=== PATIENT | female | born 1980 | race African-American/Black ===

== ENCOUNTER 2022-01-09 12:01 | Emergency (ER) | payer OTHER, SELFPAY ==
[2022-01-09] VITALS (10 sets, daily range): BP systolic 148–178; BP diastolic 70–99; PULSE 58–117; RESP 14–22; TEMP 36.8; O2SAT 98–100
--- NOTE | ~2022-01-09 | XR_ITS ---
EXAMINATION: XR chest 2V 01/09/2022 12:48 INDICATION: Left-sided chest pain PROCEDURE: 2 view chest COMPARISON: No prior studies for comparison. FINDINGS: The lungs are clear. The cardiomediastinal silhouette is within normal limits. There are no pleural effusions. There is no pneumothorax suspected. IMPRESSION: 1: NO ACUTE CARDIOPULMONARY DISEASE. Reviewed, dictated and finalized at location B.
--- NOTE | 2022-01-09 12:01 | ECG_ITS ---
Measurements Intervals [place] Rate: 75 P: 53 [place]: 153 QRS: 4 QRSD: 110 T: 26 QT: 353 QTc: 395 Interpretive Statements SINUS RHYTHM WITH SINUS ARRHYTHMIA MINIMAL Q WAVES- HIGH LATERAL LEADS BASELINE ARTIFACT- I, II, III, AVR, AVL, AVF BORDERLINE ECG Electronically Signed On 01-09-2022 12:34:49 CDT by Artem Gama D.O.
[2022-01-09 12:23] LABS: Basophils Percent Auto 0.4 % (0.2-1.2); Eosinophils Absolute Auto 0.2 K/mm3 (0-0.3); Eosinophils Percent Auto 3.1 % (0-4.4); Hemoglobin 11.8 g/dL (12.0-15.0); Immature Granulocyte Absolute 0.02 K/mm3 (0.00-0.031); Immature Granulocyte Percent A 0.4 % (0-0.5); Lymphocytes Absolute Auto 1.96 K/mm3 (0.9-3.2); Lymphocytes Percent Auto 37.8 % (18.3-44.2); Mean Corpuscular HGB Conc 31.1 g/dl (32-36); Mean Corpuscular Hemoglobin 29.3 pg (26-34); Mean Corpuscular Volume 94.3 fl (80-100); Mean Platelet Volume 8.9 fl (7.4-10.4); Monocytes Absolute Auto 0.4 K/mm3 (0.1-0.6); Monocytes Percent Auto 6.7 % (2.6-8.5); Neutrophils Absolute Auto 2.7 K/mm3 (1.3-6.7); Neutrophils Percent Auto 51.6 % (45.5-73.1); Platelet Count Result 299 k/mm3 (150-375); Red Blood Count 4.03 M/mm3 (4.2-5.4); Red Cell Distribution Width 14.7 % (11.5-14.5); White Blood Count 5.2 K/mm3 (4.5-10.0)
[2022-01-09 12:39] LABS: Alanine Aminotransferase 14 U/L (6-35); Albumin Level 4.2 g/dL (3.5-5.1); Alkaline Phosphatase 70 U/L (38-126); Anion Gap 7 mmol/L (8-16); Aspartate Amino Transferase 25 U/L (14-36); Bilirubin,Total 0.2 mg/dL (0.2-1.3); Blood Urea Nitrogen 10 mg/dL (7-17); Calcium 9.2 mg/dL (8.4-10.2); Carbon Dioxide 28 mmol/L (22-30); Chloride 103 mmol/L (98-107); Estimated CRCL calculation 99 ml/min; Estimated Glomerular Filt Rate > 60; Glucose 136 mg/dL (65-110); INR 1.2; Lipase 114 U/L (23-300); Partial Thromboplastin Time 24.8 SECONDS (22.3-36.8); Potassium 3.9 mmol/L (3.4-5.0); Prothrombin Time 14.9 Seconds (11.1-14.7); Sodium 138 mmol/L (137-145)
[2022-01-09] MEDS: ASPIRIN 81 MG CHEWABLE TABLET 324 MG PO (12:43)
--- NOTE | 2022-01-09 12:44 | PC.NURSE ---
Pt to radiology
[2022-01-09 12:50] LABS: Troponin I < 0.012 ng/mL (0.000-0.034)
[2022-01-09 15:43] LABS: Troponin I < 0.012 ng/mL (0.000-0.034)
--- NOTE | 2022-01-09 15:48 | ED.CHESTPAIN ---
HPI - Chest Pain General Chief Complaint: Chest Pain Stated Complaint: CHEST PAIN Time Seen by Provider: 01/09/22 14:17 Source: patient Mode of arrival: ambulatory Limitations: no limitations History of Present Illness HPI narrative: Patient is 41 years old -Citizen Of [place] female who presents to the ED complaining of intermittent sharp stabbing pain left upper chest last for less than 1 second, at rest while sitting messing with her phone. She denies any aggravating or relieving factors, she denies any fever, nausea, vomiting, diarrhea, constipation, shortness of breath or back pain. Related Data Home Medications Medication Instructions Recorded Confirmed amlodipine 01/09/22 Allergies Allergy/AdvReac Type Severity Reaction Status Date / Time lisinopril Allergy Swelling Verified 01/09/22 12:39 of Lip/Tongue/Throat Review of Systems Review of Systems: All systems reviewed & are unremarkable except as noted in HPI and below Exam Narrative: General appearance: Well-developed, well-nourished Skin: Normal color Head: Normocephalic, nontraumatic Eyes: Clear conjunctiva ENT: Oropharynx normal, ears normal, nose normal Neck: Supple, nontender Chest and respiratory: Airway patent, no respiratory distress, no accessory muscle use Heart: Regular rate/rhythm Abdomen: Soft, nontender, no organomegaly, quiet bowel sounds Vascular: Normal peripheral pulses, normal capillary refill. 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 Work-up did not show any significant findings to explain patient condition. Musculoskeletal versus pleurisy is my concern.. Cardiac score is 2. Vital Signs Vital signs: Vital Signs Temperature 36.8 C 01/09/22 12:02 Pulse Rate 117 H 01/09/22 12:02 Respiratory Rate 18 01/09/22 12:02 Blood Pressure 178/99 H 01/09/22 12:02 Pulse Oximetry 100 01/09/22 12:02 Temperature 36.8 C 01/09/22 12:02 Pulse Rate 58 L 01/09/22 13:46 Respiratory Rate 19 01/09/22 13:46 Blood Pressure 148/70 H 01/09/22 13:46 Pulse Oximetry 100 01/09/22 13:46 MDM - Chest Pain Lab Data Result diagrams: 01/09/22 12:16 01/09/22 12:16 Labs: Lab Results 01/09/22 01/09/22 01/09/22 Range/Units 12:16 12:16 12:16 WBC 5.2 (4.5-10.0) K/mm3 RBC 4.03 L (4.2-5.4) M/mm3 Hgb 11.8 L (12.0-15.0) g/dL Hct 38.0 (37.0-47.0) % MCV 94.3 (80-100) fl MCH 29.3 (26-34) pg MCHC 31.1 L (32-36) g/dl RDW 14.7 H (11.5-14.5) % Plt Count 299 (150-375) k/mm3 MPV 8.9 (7.4-10.4) fl Immature Gran % (Auto) 0.4 (0-0.5) % Neut % (Auto) 51.6 (45.5-73.1) % Lymph % (Auto) 37.8 (18.3-44.2) % [place] % (Auto) 6.7 (2.6-8.5) % Eos % (Auto) 3.1 (0-4.4) % Baso % (Auto) 0.4 (0.2-1.2) % Lymph # (Auto) 1.96 (0.9-3.2) K/mm3 [place] # (Auto) 0.4 (0.1-0.6) K/mm3 Eos # (Auto) 0.2 (0-0.3) K/mm3 Baso # (Auto) 0.0 (0.0-0.1) K/mm3 Abs Immat Gran (auto) 0.02 (0.00-0.031) K/mm3 Absolute Neuts (auto) 2.7 (1.3-6.7) K/mm3 Absolute Nucleated RBC 0.0 (0.0-0.012) K/mm3 Nucleated RBC % 0.0 (0.0-0.2) % PT 14.9 H (11.1-14.7) Seconds INR 1.2 APTT 24.8 (22.3-36.8) SECONDS Sodium 138 (137-145) mmol/L Potassium 3.9 (3.4-5.0) mmol/L Chloride 103 (98-107) mmol/L Carbon Dioxide 28 (22-30) mmol/L Anion Gap 7 L (8-16) mmol/L BUN 10 (7-17) mg/dL Creatinine 0.80 (0.7-1.0) mg/dL Estim Creat Clear Calc 99 ml/mi
[2022-01-09] MEDS: ACETAMINOPHEN 325 MG TABLET 650 MG PO (16:01)
== END 2022-01-09 16:03 | disposition home or self-care (01) ==
PROVIDERS: Emergency Provider Emergency Medicine
DX: R07.89 Other chest pain (principal)
CPT/HCPCS: 36415; 71046; 80053; 81025; 83690; 84484; 85025; 85610; 85730; 93005; 99284; A9270

== ENCOUNTER 2022-10-12 09:09 | Emergency (ER) | payer OTHER, SELFPAY ==
--- NOTE | ~2022-10-12 | XR_ITS ---
XR foot RT min 3V 10/12/2022 09:43 Indication: Right foot pain Procedure: 4 views right foot Comparison: No prior studies for comparison. Findings: No fracture, subluxation or dislocation. Lisfranc joint is intact. No soft tissue abnormali ty. No foreign bodies. Impression: 1: No acute fracture. Reviewed, dictated and finalized at location A. IC PUMP TRUCK DRIVER Impression: 1: No acute fracture.
[2022-10-12 09:23] VITALS: BP 171/96; PULSE 87; RESP 15; TEMP 36.6; O2SAT 100
[2022-10-12 10:35] VITALS: BP 177/81; PULSE 71; RESP 18; TEMP 36.8; O2SAT 100
--- NOTE | 2022-10-12 10:36 | ED.LOWEXIN ---
HPI - Extremity Injury (Lower) General Chief Complaint: Extremity Injury, Lower Stated Complaint: right leg pain Time Seen by Provider: 10/12/22 10:03 History of Present Illness HPI Narrative: Patient is a 42-year-old female who presents ER with right foot pain. Ongoing over the last week. Began in her right fifth metatarsal near the MTP. It then went to her heel. And now its over her MCPs 3 informed. No redness or swelling. No trauma. Hurts with walking. Better with rest. Related Data Home Medications Medication Instructions Recorded Confirmed amlodipine 5 mg tablet 01/09/22 Allergies Allergy/AdvReac Type Severity Reaction Status Date / Time lisinopril Allergy Swelling Verified 01/09/22 12:39 of Lip/Tongue/Throat Review of Systems Constitutional: Constitutional: Denies chills and Denies fever(s) Musculoskeletal: Musculoskeletal: Reports arthralgias and Denies joint swelling Neurologic: Denies focal weakness and Denies numbness PMFSH Past Medical History Medical History (Updated 10/12/22 @ 10:42 by Clay Godfrey MD) GERD (gastroesophageal reflux disease) Hyperlipidemia Hypertension Surgical History Surgical History (Updated 10/12/22 @ 10:38 by Clay Godfrey MD) No pertinent past surgical history Exam Narrative: GENERAL: Well-appearing, well-nourished, and in no acute distress. HEAD: Normocephalic, atraumatic. EXTREMITIES: Mild tenderness over the ball of the left foot at the third MTP without swelling. Flexion extension of the toes intact. No tenderness of the plantar fascia on the right side or over the calcaneus. No redness or swelling to the joints or foot. SKIN: Warm, dry, no rash. NEURO: Alert and oriented x3. PSYCH: Normal mood and affect. Course Course Emergency Course: No fracture. Withams here for pain. Postop shoe for home. Anti-inflammatories for home. Patient aware of diagnosis and treatment plan and verbalized understanding. Vital Signs Vital signs: Vital Signs Temperature 97.9 F 10/12/22 09:23 Pulse Rate 87 10/12/22 09:23 Respiratory Rate 15 10/12/22 09:23 Blood Pressure 171/96 H 10/12/22 09:23 Pulse Oximetry 100 10/12/22 09:23 Oxygen Delivery Room Air 10/12/22 09:23 Temperature 97.9 F 10/12/22 09:23 Pulse Rate 87 10/12/22 09:23 Respiratory Rate 15 10/12/22 09:23 Blood Pressure 171/96 H 10/12/22 09:23 Pulse Oximetry 100 10/12/22 09:23 Oxygen Delivery Room Air 10/12/22 09:23 MDM - Extremity Injury (Lower) Imaging Data Radiologist's impression: ITS Impressions Foot X-Ray 10/12/22 09:48 Impression: 1: No acute fracture. Discharge Plan Discharge Clinical Impression: Muscle strain of foot Patient Disposition: Home, Self-Care Condition: Stable Instructions: Muscle Strain (ED) Additional Instructions: Wear the hard soled shoe for 1 week while your pain resolves. Take naproxen twice a day over the same period of time. Return the ER if your foot is red and hot, you have fever over 100.4 ?F, you have additional concerns. Prescriptions: No Action amlodipine 5 mg tablet naproxen [Naprosyn] 500 mg tablet 500 mg PO BID PRN (Reason: pain) Qty: 14 0RF Follow-up/Referrals: PHYSICIAN,CRUSHING MILL OPERATOR [Primary Care Provider] - Manas Nice MD [Physician] - 1 Week
[2022-10-12] MEDS: HYDROcodone/acetaminophen (*CRX) 5-325 MG TABLET 1 TAB PO (10:44)
[2022-10-12 10:55] VITALS: BP 171/87; PULSE 68; RESP 18; O2SAT 100
== END 2022-10-12 11:29 | disposition home or self-care (01) ==
PROVIDERS: Emergency Provider Emergency Medicine
DX: S96.911A Strain of unspecified muscle and tendon at ankle and foot level, right foot, initial encounter (principal); E78.5 Hyperlipidemia, unspecified; I10 Essential (primary) hypertension; K21.9 Gastro-esophageal reflux disease without esophagitis; X58.XXXA Exposure to other specified factors, initial encounter
CPT/HCPCS: 73630; 99283; A9270